=== PATIENT | female | born 1980 | race African-American/Black ===

== ENCOUNTER 2017-04-08 10:51 | Observation (INO) | payer OTHER ==
--- NOTE | 2017-04-08 11:29 | PDOC ---
History of Present Illness - General Chief Complaint: Blood Sugar Problem Stated Complaint: BLOOD SUGAR PROBLEM Time Seen by Provider: 04/08/17 11:22 History Source: Patient - History of Present Illness Initial Comments: 04/08/17 14:18 Patient is a 36 y.o. female with a PMH of recently (03/2017) diagnosed AI Hepatitis who presents to our ED after outpatient BS reading of > 600. Of note patient is currently on a Predisone taper (40 mg) for her hepatitis. Patient endorses abdominal pain and visual changes on ROS however notes that these symptoms have been present prior to her hepatitis diagnosis. Patient was evaluated by her PCP yesterday at which time an HbA1c was 8.9. Patient was supposed to start Januvia today, however this morning her doctor called and stated she should come to the ED for her hyperglycemia. NKDA Surgical: Liver biopsy PMD: Dr. Linda Saab Past History - Past Medical History Allergies/Adverse Reactions: Allergies Allergy/AdvReac Type Severity Reaction Status Date / Time No Known Allergies Allergy Verified 04/08/17 11:13 Home Medications: Ambulatory Orders Omeprazole 20 mg PO DAILY 04/08/17 Prednisone [Deltasone -] 40 mg PO DAILY 04/08/17 Asthma: Yes COPD: No DVT: No Liver Disease: Yes (AUTOIMMUNE HEPATITITS) - Immunization History Immunization Up to Date: Yes - Suicide/Smoking/Psychosocial Hx Smoking History: Current some day smoker Number of Cigarettes Smoked Daily: 1 Information on smoking cessation initiated: No Hx Alcohol Use: No Drug/Substance Use Hx: No Substance Use Type: None Review of Systems - Review of Systems Constitutional: No: Chills, Fever HEENTM: Yes: Recent change in vision Respiratory: No: Shortness of Breath Cardiac (ROS): No: Chest Pain ABD/GI: Yes: Abdominal cramping. No: Abd. Pain w/ defecation, Constipated, Diarrhea, Vomiting : No: Burning, Dysuria *Physical Exam - Vital Signs Last Vital Signs Temp Pulse Resp BP Pulse Ox 98.1 F 81 16 148/86 100 04/08/17 11:01 04/08/17 11:01 04/08/17 11:01 04/08/17 11:01 04/08/17 11:01 - Physical Exam General Appearance: Yes: Nourished, Appropriately Dressed HEENT: positive: EOMI, HANNAH. negative: Scleral Icterus (R), Scleral Icterus (L) , TM Bulging, TM Dull, TM Erythema Neck: positive: Trachea midline, Supple Respiratory/Chest: positive: Lungs Clear Cardiovascular: positive: S1, S2 Gastrointestinal/Abdominal: positive: Normal Bowel Sounds, Soft Extremity: positive: Normal Capillary Refill, Normal Inspection Integumentary: positive: Normal Color, Dry, Warm Neurologic: positive: Fully Oriented, Alert ED Treatment Course - LABORATORY CBC & Chemistry Diagram: 04/09/17 06:30 04/09/17 06:30 Medical Decision Making - Medical Decision Making 04/08/17 14:02 Patient is a 36 y.o. female who presents with hyperglycemia - likely 2/2 to recent steroid use. BS 600's, K+ 4.6 --> 10 units insulin + 2 L IV NS. CMP significant for ALT 261 (as per EMR 712 @ time of hepatitis diagnosis --> 296 yesterday) and AST 71 (144 --> 86). Case d/w patient PCP Dr. Linda Saab ( office: [phone]; cell: [phone]) agrees w/ admission with plan to see PCP and [employer] on Wednesday. 04/08/17 14:48 Patient admitted to Observation medicine service. 04/08/17 16:39 Repeat BS 600's --> 10 units insulin. Patient signed out to Dr. Caba (Resident ) and Dr. Marte (Attending). Will continue to monitor BS w/sliding scale insulin. *DC/Admit/Observation/Transfer Diagnosis at time of Disposition: Blood glucose abnormal - Discharge Dispostion Admit: Yes - Referrals - Patient Instructions - Post Discharge Activity
[2017-04-08] MEDS ORDERED: SODIUM CHLORIDE 0.9% 1000 ML INFUS.BAG IV ONE (11:30)
--- NOTE | 2017-04-08 12:19 | PDOC ---
Attending Attestation - HPI HPI: 04/08/17 12:23 The patient is a 36 year old female with a significant PMH of asthma, tobacco use, steroid-induced diabetes, autoimmune hepatitis currently on 40mg of prednisone daily who presents to the emergency department for evaluation of hyperglycemia. The patient states she had blood work on Wednesday and received a phone call yesterday saying her hemoglobin A1C was approximately 8.9 and blood glucose of 600+. The patient notes her PCP called her this morning to come into the ER for further evaluation. The patient states she was prescribed Januvia but has not taken it yet. The patient reports subjective fevers at night and intermittent abdominal cramping but has no other complaints. The patient denies chest pain, shortness of breath, headache and dizziness. Denies chills, nausea, vomit, diarrhea and constipation. Denies dysuria, frequency, urgency and hematuria. Allergies: NKA Past surgical history: None reported Social history: No reported alcohol or drug use. - Physicial Exam PE: 04/08/17 12:28 GENERAL: Awake, alert, and fully oriented, in no acute distress HEAD: No signs of trauma EYES: PERRLA, EOMI, sclera anicteric, conjunctiva clear ENT: Auricles normal inspection, hearing grossly normal, nares patent, oropharynx clear without exudates. Moist mucosa NECK: Normal ROM, supple, no lymphadenopathy, JVD, or masses LUNGS: Breath sounds equal, clear to auscultation bilaterally. No wheezes, and no crackles HEART: Regular rate and rhythm, normal S1 and S2, no murmurs, rubs or gallops ABDOMEN: Soft, nontender, normoactive bowel sounds. No guarding, no rebound. No masses EXTREMITIES: Normal range of motion, no edema. No clubbing or cyanosis. No cords, erythema, or tenderness NEUROLOGICAL: Cranial nerves II through XII grossly intact. Normal speech, normal gait SKIN: Warm, Dry, normal turgor, no rashes or lesions noted. <Enedina Starks - Last Filed: 04/08/17 12:25> - Resident Resident Name: Brie Blakely - ED Attending Attestation I have performed the following: I have examined & evaluated the patient, The case was reviewed & discussed with the resident, I agree w/resident's findings & plan, Exceptions are as noted - Medical Decision Making 04/08/17 12:17 A portion of this note was written by my scribe, under my supervision. Vital Signs Temp Pulse Resp BP Pulse Ox 98.1 F 81 16 148/86 100 04/08/17 11:01 04/08/17 11:01 04/08/17 11:01 04/08/17 11:01 04/08/17 11:01 36-year-old female with past medical history of steroid-induced diabetes, autoimmune hepatitis, currently on 40 mg of prednisone daily, presents with hyperglycemia. The patient has recently been known to be hyperglycemic and has been managed as an outpatient by her doctor. She has had blood tests performed which demonstrated an elevated hemoglobin A1c of approximately 8. Had a random glucose check which demonstrated sugars can 600. Patient reports occasional abdominal cramping but denies any other symptoms. Her doctor advised the patient to go to the ER. The patient overall is nontoxic appearing. However, we'll rule out diabetic ketoacidosis. We'll attempt to control the sugars and touch base with the patient's doctor. If workup is negative and the patient is feeling better and the glucose is improved, we can discharge patient with outpatient management follow-up with return precautions. 04/08/17 15:44 CBC, BMP 04/08/17 11:50 04/08/17 12:20 CMP Sodium 128 mmol/L (136-145) L 04/08/17 12:20 Potassium 4.6 mmol/L (3.5-5.1) 04/08/17 12:20 Chloride 93 mmol/L (98-107) L 04/08/17 12:20 Carbon Dioxide 27 mmol/L (21-32) 04/08/17 12:20 Anion Gap 8 (8-16) 04/08/17 12:20 BUN 18 mg/dL (7-18) 04/08/17 12:20 Creatinine 1.0 mg/dL (0.55-1.02) 04/08/17 12:20 Creat Clearance w eGFR > 60 (>60) 04/08/17 12:20 Random Glucose 587 mg/dL (74-106) H* 04/08/17 12:20 Calcium 8.2 mg/dL (8.5-10.1) L 04/08/17 12:20 Total Bilirubin 2.2 mg/dL (0.2-1.0) H 04/08/17 12:20 AST 71 U/L (15-37) H 04/08/17 12:20 ALT 262 U/L (12-78) H 04/08/17 12:20 Alkaline Phosphatase 131 U/L (45-117) H 04/08/17 12:20 Creatine Kinase 150 IU/L (26-192) 04/08/17 12:30 Creatine Kinase Index 1.7 % (0.0-5.0) 04/08/17 12:30 CK-MB (CK-2) 2.689 ng/mL (0.5-3.6) 04/08/17 12:30 Total Protein 6.5 g/dl (6.4-8.2) 04/08/17 12:20 Albumin 3.2 g/dl (3.4-5.0) L 04/08/17 12:20 Serum , Qual Negative 04/08/17 11:50 AG 8. No DKA. Dr. Blakely had spoken with patient's PMD, agrees the plan to admit. (Elevated LFTs appear 2/2 autoimmune hepatitis). Will admit. <Anuj Jarvis - Last Filed: 04/08/17 15:45>
[2017-04-08 12:27] LABS: VENOUS PC02 49.3 mmHg (38-52); VENOUS PH 7.36 (7.32-7.42); VENOUS PO2 26.7 mmHg (28-48)
[2017-04-08 12:27] LABS: BASO % 0.8 % (0-2.0); EOS % 0.7 % (0-4.5); HEMATOCRIT 37.2 % (32.4-45.2); HEMOGLOBIN 12.3 GM/dL (10.7-15.3); LYMPH % 26.2 % (8-40); MCH 31.3 pg (25.7-33.7); MEAN CELL VOLUME 94.9 fl (80-96); MEAN PLT VOLUME 11.5 fl (7.5-11.1); MONO % 6.7 % (3.8-10.2); NEUT % 65.6 % (42.8-82.8); PLATELET COUNT 152 K/MM3 (134-434); RBC 3.92 M/mm3 (3.60-5.2); RDW 16.3 % (11.6-15.6); WHITE BLOOD COUNT 10.6 K/mm3 (4.0-10.0)
[2017-04-08 12:32] LABS: URINE APPEARANCE CLEAR; URINE BILIRUBIN NEGATIVE (NEGATIVE); URINE BLOOD NEGATIVE (NEGATIVE); URINE COLOR LTYELLOW; URINE GLUCOSE (UA) 3+ (NEGATIVE); URINE KETONE TRACE (NEGATIVE); URINE LEUK ESTERASE NEGATIVE (NEGATIVE); URINE NITRITE NEGATIVE (NEGATIVE); URINE PROTEIN NEGATIVE (NEGATIVE)
[2017-04-08 12:57] LABS: ALBUMIN 3.2 g/dl (3.4-5.0); ALK PHOS 131 U/L (45-117); ANION GAP 8 (8-16); BILIRUBIN,TOTAL 2.2 mg/dL (0.2-1.0); BLOOD UREA NITROGEN 18 mg/dL (7-18); CALCIUM 8.2 mg/dL (8.5-10.1); CHLORIDE 93 mmol/L (98-107); CO2 27 mmol/L (21-32); SGPT/ALT 262 U/L (12-78); SODIUM 128 mmol/L (136-145); TOT PROT 6.5 g/dl (6.4-8.2)
[2017-04-08 13:01] LABS: POTASSIUM 4.6 mmol/L (3.5-5.1); SGOT/AST 71 U/L (15-37)
[2017-04-08 13:11] LABS: GLUCOSE,RANDOM 587 mg/dL (74-106)
[2017-04-08] MEDS ORDERED: INSULIN REGULAR HUMAN 100 UNITS/ML *VIAL IVPUSH ONE ×3 (13:22→16:54)
[2017-04-08] MEDS ORDERED: SODIUM CHLORIDE 0.9% 500 ML INFUS.BAG IV ONE (13:23)
[2017-04-08] MEDS ORDERED: INSULIN (NOVOLOG) ASPART 100 UNITS/ML 10ML VIAL ONE ×2 (13:40→16:49)
--- NOTE | 2017-04-08 16:23 | HP ---
CHIEF COMPLAINT: Thirst, frequency, blurry vision PCP: Dr. Linda Saab HISTORY OF PRESENT ILLNESS: 36 year-old female with a PMH significant for asthma, PCOS, and recently diagnosed autoimmunie hepatitis on steroid taper. Referred to the ED by PCP on finding patient's glucose level >600 during office visit earlier today. Patient states she was hospitalized at [facility] from 03/12/17--03/19/17 and was diagnosed with autoimmune hepatitis. She was started on prednsione which has been titrated down since discharge. She is presently on 40mg daily. Since starting the steroids, patient has been experiencing increased thirst and urination, and blurred vision. Patient states in 2014 she was diagnosed with pre -diabetes with a HgbA1C of 5.7. She was treated with Invokana for a brief period. Patient denies chest pain, shortness of breath, headache and dizziness. Denies chills, nausea, vomit, diarrhea and constipation. Denies dysuria, frequency, urgency and hematuria. 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 [place] Smoking: current every day smoker Alcohol: no Drugs: +marijuana Family History: Mother alive with NIDDM, extended materal family relatives with NIDDM; father 60 lung cancer; 5 brothers and 1 sister a&w; has no children Allergies No Known Allergies Allergy (Verified 04/08/17 11:13) HOME MEDICATIONS: Home Medications Medication Instructions Recorded Omeprazole 20 mg PO DAILY 04/08/17 Prednisone [Deltasone -] 40 mg PO DAILY 04/08/17 REVIEW OF SYSTEMS CONSTITUTIONAL: Absent: fever, chills, diaphoresis, generalized weakness, malaise, loss of appetite, weight change HEENT: Absent: rhinorrhea, nasal congestion, throat pain, throat swelling, difficulty swallowing, mouth swelling, ear pain, eye pain, visual changes CARDIOVASCULAR: Absent: chest pain, syncope, palpitations, irregular heart rate, lightheadedness , peripheral edema RESPIRATORY: Absent: cough, shortness of breath, dyspnea with exertion, orthopnea, wheezing, stridor, hemoptysis GASTROINTESTINAL: Absent: abdominal pain, abdominal distension, nausea, vomiting, diarrhea, constipation, melena, hematochezia GENITOURINARY: +frequency Absent: dysuria, urgency, hesitancy, hematuria, flank pain, genital pain MUSCULOSKELETAL: Absent: myalgia, arthralgia, joint swelling, back pain, neck pain SKIN: Absent: rash, itching, pallor HEMATOLOGIC/IMMUNOLOGIC: Absent: easy bleeding, easy bruising, lymphadenopathy, frequent infections ENDOCRINE: Absent: unexplained weight gain, unexplained weight loss, heat intolerance, cold intolerance NEUROLOGIC: Absent: headache, focal weakness or paresthesias, dizziness, unsteady gait, seizure, mental status changes, bladder or bowel incontinence PSYCHIATRIC: Absent: anxiety, depression, suicidal or homicidal ideation, hallucinations. PHYSICAL EXAMINATION Vital Signs - 24 hr 04/08/17 11:01 Temperature 98.1 F Pulse Rate 81 Respiratory 16 Rate Blood Pressure 148/86 O2 Sat by Pulse 100 Oximetry (%) GENERAL: Awake, alert, and fully oriented, in no acute distress. HEAD: Normal with no signs of trauma. EYES: Pupils equal, round and reactive to light, extraocular movements intact, sclera anicteric, conjunctiva clear. No lid lag. EARS, NOSE, THROAT: Ears normal, nares patent, oropharynx clear without exudates. Moist mucous membranes. NECK: Normal range of motion, supple without lymphadenopathy, JVD, or masses. LUNGS: Breath sounds equal, clear to auscultation bilaterally. No wheezes, and no crackles. No accessory muscle use. HEART: Regular rate and rhythm, normal S1 and S2 without murmur, rub or gallop. ABDOMEN: Soft, nontender, not distended, normoactive bowel sounds, no guarding, no rebound, no masses. No hepatomegaly or splenomegaly. MUSCULOSKELETAL: Normal range of motion at all joints. No bony deformities or tenderness. No CVA tenderness. UPPER EXTREMITIES: 2+ pulses, warm, well-perfused. No cyanosis. No clubbing. No peripheral edema. LOWER EXTREMITIES: 2+ pulses, warm, well-perfused. No calf tenderness. No peripheral edema. NEUROLOGICAL: Cranial nerves II-XII intact. Normal speech. Normal gait. PSYCHIATRIC: Cooperative. Good eye contact. Appropriate mood and affect. SKIN: Warm, dry, normal turgor, no rashes or lesions noted, normal capillary refill. Laboratory Results - last 24 hr 04/08/17 04/08/17 04/08/17 11:47 11:50 11:50 WBC 10.6 H RBC 3.92 Hgb 12.3 Hct 37.2 MCV 94.9 MCH 31.3 MCHC 33.0 RDW 16.3 H Plt Count 152 MPV 11.5 H Neutrophils % 65.6 Lymphocytes % 26.2 Monocytes % 6.7 Eosinophils % 0.7 Basophils % 0.8 VBG pH POC VBG pCO2 POC VBG pO2 Mixed VBG HCO3 Sodium Potassium Chloride Carbon Dioxide Anion Gap BUN Creatinine Creat Clearance w eGFR POC Glucometer > 400 Random Glucose Calcium Total Bilirubin AST ALT Alkaline Phosphatase Creatine Kinase Creatine Kinase Index CK-MB (CK-2) Total Protein Albumin Serum , Qual Negative Urine Color Urine Appearance Urine pH Ur Specific [place] Urine Protein Urine Glucose (UA) Urine Ketones Urine Blood Urine Nitrite Urine Bilirubin Urine Urobilinogen Ur Leukocyte Esterase Acetone, Qual 04/08/17 04/08/17 04/08/17 11:50 12:06 12:15 WBC RBC Hgb Hct MCV MCH MCHC RDW Plt Count MPV Neutrophils % Lymphocytes % Monocytes % Eosinophils % Basophils % VBG pH 7.36 POC VBG pCO2 49.3 POC VBG pO2 26.7 L Mixed VBG HCO3 27.0 H Sodium Potassium Chloride Carbon Dioxide Anion Gap BUN Creatinine Creat Clearance w eGFR POC Glucometer Random Glucose Calcium Total Bilirubin AST ALT Alkaline Phosphatase Creatine Kinase Creatine Kinase Index CK-MB (CK-2) Total Protein Albumin Serum , Qual Urine Color Ltyellow Urine Appearance Clear Urine pH 6.0 Ur Specific [place] 1.033 Urine Protein Negative Urine Glucose (UA) 3+ H Urine Ketones Trace H Urine Blood Negative Urine Nitrite Negative Urine Bilirubin Negative Urine Urobilinogen 2.0 H Ur Leukocyte Esterase Negative Acetone, Qual Negative L 04/08/17 04/08/17 12:20 12:30 WBC RBC Hgb Hct MCV MCH MCHC RDW Plt Count MPV Neutrophils % Lymphocytes % Monocytes % Eosinophils % Basophils % VBG pH POC VBG pCO2 POC VBG pO2 Mixed VBG HCO3 Sodium 128 L Potassium 4.6 Chloride 93 L Carbon Dioxide 27 Anion Gap 8 BUN 18 Creatinine 1.0 Creat Clearance w eGFR > 60 POC Glucometer Random Glucose 587 H* Calcium 8.2 L Total Bilirubin 2.2 H AST 71 H ALT 262 H Alkaline Phosphatase 131 H Creatine Kinase 150 Creatine Kinase Index 1.7 CK-MB (CK-2) 2.689 Total Protein 6.5 Albumin 3.2 L Serum , Qual Urine Color Urine Appearance Urine pH Ur Specific [place] Urine Protein Urine Glucose (UA) Urine Ketones Urine Blood Urine Nitrite Urine Bilirubin Urine Urobilinogen Ur Leukocyte Esterase Acetone, Qual ASSESSMENT/PLAN: 36 year-old female with a PMH significant for asthma, PCOS, and recently diagnosed autoimmunie hepatitis on steroid taper. Glucose level >600 during office visit earlier today. Hyperglycemia Diabetes --was briefly on Invokana in 2014 for concern for diabetes, but taken off after three months; no other previous diagnosis of diabetes --following commencement of steroids, symptoms of polyuria, polydipsia developed; recent A1C by PCP >8 --gluocse 587 on admission --Novolog sliding scale coverage --IV fluids --monitor electrolytes closely; corrected Na 136 PCOS --not on medication Asthma --stable DVT prophylaxis: oob, ambulation Visit type - Emergency Visit Emergency Visit: Yes ED Registration Date: 04/08/17 Care time: The patient presented to the Emergency Department on the above date and was hospitalized for further evaluation of their emergent condition. - New Patient This patient is new to me today: Yes Date on this admission: 04/09/17 - Critical Care Critical Care patient: No
[2017-04-08] MEDS: SODIUM CHLORIDE 1,000 ML IV SCH ×2 (16:25→22:38)
[2017-04-08] MEDS ORDERED: predniSONE 20 MG TABLET (UD) ONE (16:48)
[2017-04-08] MEDS ORDERED: PANTOPRAZOLE 40 MG TABLET (FP) ONE (16:49)
[2017-04-08] MEDS: predniSONE 20 MG TABLET (UD) PO SCH (16:54)
[2017-04-08] MEDS: PANTOPRAZOLE 20 MG TABLET (FP) PO SCH (16:54)
[2017-04-08] MEDS: INSULIN SLIDING SCALE (NOVOLOG) 1 VIAL SQ SCH ×2 (16:54→23:24)
[2017-04-08 22:35] VITALS: BMI 33.1
[2017-04-08 23:31] LABS: ANION GAP 9 (8-16); BLOOD UREA NITROGEN 18 mg/dL (7-18); CALCIUM 8.1 mg/dL (8.5-10.1); CHLORIDE 100 mmol/L (98-107); CO2 25 mmol/L (21-32); CREATININE 0.9 mg/dL (0.55-1.02); MAGNESIUM 1.9 mg/dL (1.8-2.4); SODIUM 134 mmol/L (136-145)
[2017-04-08 23:34] LABS: GLUCOSE,RANDOM 437 mg/dL (74-106)
[2017-04-09] MEDS: SODIUM CHLORIDE 1,000 ML IV SCH (06:17)
[2017-04-09] MEDS: INSULIN SLIDING SCALE (NOVOLOG) 1 VIAL SQ SCH ×3 (06:19→17:43)
[2017-04-09 08:14] LABS: ALBUMIN 2.6 g/dl (3.4-5.0); ANION GAP 9 (8-16); BLOOD UREA NITROGEN 15 mg/dL (7-18); CALCIUM 7.8 mg/dL (8.5-10.1); CHLORIDE 104 mmol/L (98-107); CO2 24 mmol/L (21-32); CREATININE 0.6 mg/dL (0.55-1.02); GLUCOSE,RANDOM 240 mg/dL (74-106); POTASSIUM 3.9 mmol/L (3.5-5.1); SGOT/AST 53 U/L (15-37); SGPT/ALT 214 U/L (12-78); SODIUM 137 mmol/L (136-145)
[2017-04-09 08:15] LABS: ALK PHOS 101 U/L (45-117); BILIRUBIN,TOTAL 1.4 mg/dL (0.2-1.0); TOT PROT 5.4 g/dl (6.4-8.2)
[2017-04-09 08:19] LABS: BASO % 0.4 % (0-2.0); EOS % 1.1 % (0-4.5); HEMATOCRIT 33.4 % (32.4-45.2); HEMOGLOBIN 11.1 GM/dL (10.7-15.3); LYMPH % 41.6 % (8-40); MCH 31.2 pg (25.7-33.7); MCHC 33.2 g/dl (32.0-36.0); MEAN CELL VOLUME 94.2 fl (80-96); MEAN PLT VOLUME 11.4 fl (7.5-11.1); MONO % 7.2 % (3.8-10.2); NEUT % 49.7 % (42.8-82.8); PLATELET COUNT 138 K/MM3 (134-434); RBC 3.55 M/mm3 (3.60-5.2); RDW 17.3 % (11.6-15.6); WHITE BLOOD COUNT 11.1 K/mm3 (4.0-10.0)
[2017-04-09] MEDS ORDERED: FLU VACCINE QUAD 60 MCG/0.5 ML (MDV 17-18) IM ONE (09:00)
[2017-04-09] MEDS: predniSONE 20 MG TABLET (UD) PO SCH (10:42)
[2017-04-09] MEDS: PANTOPRAZOLE 20 MG TABLET (FP) PO SCH (10:42)
--- NOTE | 2017-04-09 11:33 | PN ---
Physical Exam: SUBJECTIVE: Patient seen and examined. Continues to experience polydipsia, improving. No longer having polyuria. OBJECTIVE: Vital Signs Period Temp Pulse Resp BP Sys/Perez Pulse Ox Last 24 Hr 97.5 F-98.2 F 63-78 18-20 120-135/59-80 97-99 GENERAL: The patient is awake, alert, and fully oriented, in no acute distress. HEAD: Normal with no signs of trauma. EYES: PERRL, extraocular movements intact, sclera anicteric, conjunctiva clear. No ptosis. ENT: Ears normal, nares patent, oropharynx clear without exudates, moist mucous membranes. NECK: Trachea midline, full range of motion, supple. LUNGS: Breath sounds equal, clear to auscultation bilaterally, no wheezes, no crackles, no accessory muscle use. HEART: Regular rate and rhythm, S1, S2 without murmur, rub or gallop. ABDOMEN: Soft, nontender, nondistended, normoactive bowel sounds, no guarding, no rebound, no hepatosplenomegaly, no masses. EXTREMITIES: 2+ pulses, warm, well-perfused, no edema. NEUROLOGICAL: Cranial nerves II through XII grossly intact. Normal speech, gait not observed. PSYCH: Normal mood, normal affect. SKIN: Warm, dry, normal turgor, no rashes or lesions noted Laboratory Results - last 24 hr 04/08/17 04/08/17 04/08/17 11:47 11:50 11:50 WBC 10.6 H RBC 3.92 Hgb 12.3 Hct 37.2 MCV 94.9 MCH 31.3 MCHC 33.0 RDW 16.3 H Plt Count 152 MPV 11.5 H Neutrophils % 65.6 Lymphocytes % 26.2 Monocytes % 6.7 Eosinophils % 0.7 Basophils % 0.8 VBG pH POC VBG pCO2 POC VBG pO2 Mixed VBG HCO3 Sodium Potassium Chloride Carbon Dioxide Anion Gap BUN Creatinine Creat Clearance w eGFR POC Glucometer > 400 Random Glucose Hemoglobin A1c % Calcium Phosphorus Magnesium Total Bilirubin AST ALT Alkaline Phosphatase Creatine Kinase Creatine Kinase Index CK-MB (CK-2) Total Protein Albumin Serum , Qual Negative Urine Color Urine Appearance Urine pH Ur Specific [place] Urine Protein Urine Glucose (UA) Urine Ketones Urine Blood Urine Nitrite Urine Bilirubin Urine Urobilinogen Ur Leukocyte Esterase Acetone, Qual 01/04/08/17 04/08/17 11:50 12:06 12:15 WBC RBC Hgb Hct MCV MCH MCHC RDW Plt Count MPV Neutrophils % Lymphocytes % Monocytes % Eosinophils % Basophils % VBG pH 7.36 POC VBG pCO2 49.3 POC VBG pO2 26.7 L Mixed VBG HCO3 27.0 H Sodium Potassium Chloride Carbon Dioxide Anion Gap BUN Creatinine Creat Clearance w eGFR POC Glucometer Random Glucose Hemoglobin A1c % Calcium Phosphorus Magnesium Total Bilirubin AST ALT Alkaline Phosphatase Creatine Kinase Creatine Kinase Index CK-MB (CK-2) Total Protein Albumin Serum , Qual Urine Color Ltyellow Urine Appearance Clear Urine pH 6.0 Ur Specific [place] 1.033 Urine Protein Negative Urine Glucose (UA) 3+ H Urine Ketones Trace H Urine Blood Negative Urine Nitrite Negative Urine Bilirubin Negative Urine Urobilinogen 2.0 H Ur Leukocyte Esterase Negative Acetone, Qual Negative L 04/08/17 04/08/17 04/08/17 12:20 12:30 16:48 WBC RBC Hgb Hct MCV MCH MCHC RDW Plt Count MPV Neutrophils % Lymphocytes % Monocytes % Eosinophils % Basophils % VBG pH POC VBG pCO2 POC VBG pO2 Mixed VBG HCO3 Sodium 128 L Potassium 4.6 Chloride 93 L Carbon Dioxide 27 Anion Gap 8 BUN 18 Creatinine 1.0 Creat Clearance w eGFR > 60 POC Glucometer > 400 Random Glucose 587 H* Hemoglobin A1c % Calcium 8.2 L Phosphorus Magnesium Total Bilirubin 2.2 H AST 71 H ALT 262 H Alkaline Phosphatase 131 H Creatine Kinase 150 Creatine Kinase Index 1.7 CK-MB (CK-2) 2.689 Total Protein 6.5 Albumin 3.2 L Serum , Qual Urine Color Urine Appearance Urine pH Ur Specific [place] Urine Protein Urine Glucose (UA) Urine Ketones Urine Blood Urine Nitrite Urine Bilirubin Urine Urobilinogen Ur Leukocyte Esterase Acetone, Qual 04/08/17 04/08/17 04/09/17 21:55 22:36 06:18 WBC RBC Hgb Hct MCV MCH MCHC RDW Plt Count MPV Neutrophils % Lymphocytes % Monocytes % Eosinophils % Basophils % VBG pH POC VBG pCO2 POC VBG pO2 Mixed VBG HCO3 Sodium 134 L Potassium 5.0 Chloride 100 Carbon Dioxide 25 Anion Gap 9 BUN 18 Creatinine 0.9 Creat Clearance w eGFR POC Glucometer 438 254 Random Glucose 437 H* Hemoglobin A1c % Calcium 8.1 L Phosphorus 3.0 Magnesium 1.9 Total Bilirubin AST ALT Alkaline Phosphatase Creatine Kinase Creatine Kinase Index CK-MB (CK-2) Total Protein Albumin Serum , Qual Urine Color Urine Appearance Urine pH Ur Specific [place] Urine Protein Urine Glucose (UA) Urine Ketones Urine Blood Urine Nitrite Urine Bilirubin Urine Urobilinogen Ur Leukocyte Esterase Acetone, Qual 04/09/17 04/09/17 04/09/17 06:30 06:30 06:30 WBC 11.1 H RBC 3.55 L Hgb 11.1 Hct 33.4 MCV 94.2 MCH 31.2 MCHC 33.2 RDW 17.3 H Plt Count 138 MPV 11.4 H Neutrophils % 49.7 D Lymphocytes % 41.6 H D Monocytes % 7.2 Eosinophils % 1.1 Basophils % 0.4 VBG pH POC VBG pCO2 POC VBG pO2 Mixed VBG HCO3 Sodium 137 Potassium 3.9 Chloride 104 Carbon Dioxide 24 Anion Gap 9 BUN 15 Creatinine 0.6 Creat Clearance w eGFR > 60 POC Glucometer Random Glucose 240 H Hemoglobin A1c % 10.5 H Calcium 7.8 L Phosphorus Magnesium 2.0 Total Bilirubin 1.4 H D AST 53 H ALT 214 H Alkaline Phosphatase 101 Creatine Kinase Creatine Kinase Index CK-MB (CK-2) Total Protein 5.4 L Albumin 2.6 L Serum , Qual Urine Color Urine Appearance Urine pH Ur Specific [place] Urine Protein Urine Glucose (UA) Urine Ketones Urine Blood Urine Nitrite Urine Bilirubin Urine Urobilinogen Ur Leukocyte Esterase Acetone, Qual Active Medications Generic Name Dose Route Start Last Admin Trade Name Freq PRN Reason Stop Dose Admin Sodium Chloride 1,000 mls @ 125 mls/hr 04/08/17 16:15 04/09/17 06:17 Normal Saline - IV 125 mls/hr ASDIR JANET Administration Insulin Aspart 1 vial 04/08/17 16:30 04/09/17 06:19 Novolog Vial Sliding Scale - SQ 6 units ACHS JANET Administration Protocol Pantoprazole Sodium 20 mg 04/08/17 16:30 04/09/17 10:42 Protonix - PO 20 mg DAILY JANET Administration Prednisone 40 mg 04/08/17 16:30 04/09/17 10:42 Deltasone - PO 40 mg DAILY JANET Administration ASSESSMENT/PLAN: A: 36 year-old female with a PMH significant for asthma, PCOS, and recently diagnosed autoimmunie hepatitis on steroid taper. Glucose level >600 during office visit 04/08. P: Hyperglycemia Diabetes - symptoms of polyuria, polydipsia developed after steroid initiation - gluocose 200's overnight - A1c- 10.5 - Novolog SS - Endocrine consult pending - Dietary consult PCOS - not on medication Asthma - stable Autoimmune hepatitis - prednisone F/E/N - diabetic diet - trend lytes PPX - OOB - PT Visit type - Emergency Visit Emergency Visit: Yes ED Registration Date: 04/08/17 Care time: The patient presented to the Emergency Department on the above date and was hospitalized for further evaluation of their emergent condition. - New Patient This patient is new to me today: Yes Date on this admission: 04/09/17 - Critical Care Critical Care patient: No
--- NOTE | 2017-04-09 14:46 | CONSULT ---
Consult Consult Specialty:: Endocrinology Referred by:: Naheed Snyder Reason for Consultation:: New Onset DM - History of Present Illness Chief Complaint: Polyuria, polydipsia History of Present Illness: This is a 36 year-old female with h/o ?asthma, PCOS, IGT and recently diagnosed autoimmunie hepatitis on steroid taper who wasr eferred to the ED by PCP b/o glucose level >600 during office visit yesterday. Patient states she was hospitalized at [facility] from 03/12/17--03/19/17 and was diagnosed with autoimmune hepatitis. She was started on prednsione which has been titrated down since discharge. She is presently on 40mg daily which is being tapered to 30mg daily starting tomorrow and to 20mg daily starting next Wednesday. Pt to be on 20mg daily for about 2 years as per pt. Since starting the steroids, patient has been experiencing increased thirst and urination, and blurred vision. She has lost around 20 lbs in the last few weeks. Patient states in 2014 she was diagnosed with pre-diabetes with a HgbA1C of 5.7. She was treated with Invokana for a brief period. Patient denies chest pain, shortness of breath, headache and dizziness. Denies chills, nausea, vomit, diarrhea and constipation. Denies dysuria, frequency, urgency and hematuria. Blood sugar in ED was 587. Pt was treated with Insulin with improvement in blood sugar - History Source History Provided By: Patient, Medical Record - Past Medical History Hepatobiliary: Yes: Other (Autoimmune hepatitis) ...: No Endocrine: Yes: Other (Impaired glucose tolerance) - Alcohol/Substance Use Hx Alcohol Use: No - Smoking History Smoking history: Current some day smoker Have you smoked in the past 12 months: Yes Aproximately how many cigarettes per day: 1 Home Medications - Allergies Allergies/Adverse Reactions: Allergies Allergy/AdvReac Type Severity Reaction Status Date / Time No Known Allergies Allergy Verified 04/08/17 11:13 - Home Medications Home Medications: Ambulatory Orders Omeprazole 20 mg PO DAILY 04/08/17 Prednisone [Deltasone -] 40 mg PO DAILY 04/08/17 Family Disease History - Family Disease History Family Disease History: Diabetes: Grandparent, Mother Review of Systems - Review of Systems Constitutional: reports: Malaise Eyes: reports: Blurred Vision HENT: reports: No Symptoms Neck: reports: No Symptoms Cardiovascular: reports: No Symptoms Respiratory: reports: No Symptoms Gastrointestinal: reports: No Symptoms Genitourinary: reports: Frequency (Polyuria, polydipsis), Urgency, Other Breasts: reports: No Symptoms Reported Musculoskeletal: reports: No Symptoms Integumentary: reports: No Symptoms Neurological: reports: No Symptoms Endocrine: reports: No Symptoms Hematology/Lymphatic: reports: No Symptoms Psychiatric: reports: No Symptoms Physical Exam Vital Signs: Vital Signs Temperature 98.2 F 04/09/17 09:00 Pulse Rate 78 04/09/17 09:00 Respiratory Rate 18 04/09/17 09:00 Blood Pressure 129/78 04/09/17 09:00 O2 Sat by Pulse Oximetry (%) 97 04/09/17 00:14 Constitutional: Yes: No Distress, Calm Eyes: Yes: Conjunctiva Clear, EOM Intact HENT: Yes: Atraumatic, Normocephalic Neck: Yes: Supple, Trachea Midline Cardiovascular: Yes: Regular Rate and Rhythm Respiratory: Yes: Regular, CTA Bilaterally Gastrointestinal: Yes: Normal Bowel Sounds, Soft Renal/: Yes: WNL Musculoskeletal: Yes: WNL Extremities: Yes: WNL Edema: No Neurological: Yes: Alert, Oriented Labs: CBC, BMP 04/09/17 06:30 04/09/17 06:30 Assessment/Plan AP: DM probably precipitated by steroids Autoimmune Hepatitis PCOS Diet exercise discussed Diabetes education done. BGM QACHS Nutrition consult Glipizide 2.5mg BID premeals No Metformin as she was not able to tolerate it in the past Novolog SS coverage Teach pt to self monitor blood sugar, and self inject insulin
[2017-04-09] MEDS: glipiZIDE 5 MG TABLET (FP) PO SCH (17:43)
[2017-04-09] MEDS ORDERED: INSULIN SLIDING SCALE (NOVOLOG) 1 VIAL SQ SCH (22:00)
[2017-04-10] MEDS: INSULIN SLIDING SCALE (NOVOLOG) 1 VIAL SQ SCH (06:00)
[2017-04-10] MEDS: glipiZIDE 5 MG TABLET (FP) PO SCH (06:00)
[2017-04-10 07:52] LABS: BASO % 0.3 % (0-2.0); EOS % 1.1 % (0-4.5); HEMATOCRIT 34.9 % (32.4-45.2); HEMOGLOBIN 11.7 GM/dL (10.7-15.3); LYMPH % 44.3 % (8-40); MCH 31.4 pg (25.7-33.7); MCHC 33.7 g/dl (32.0-36.0); MEAN CELL VOLUME 93.4 fl (80-96); MEAN PLT VOLUME 11.1 fl (7.5-11.1); MONO % 5.8 % (3.8-10.2); NEUT % 48.5 % (42.8-82.8); PLATELET COUNT 143 K/MM3 (134-434); RBC 3.74 M/mm3 (3.60-5.2); RDW 17.2 % (11.6-15.6); WHITE BLOOD COUNT 10.6 K/mm3 (4.0-10.0)
[2017-04-10 08:18] LABS: ALBUMIN 2.7 g/dl (3.4-5.0); ANION GAP 9 (8-16); BILIRUBIN,TOTAL 1.4 mg/dL (0.2-1.0); BLOOD UREA NITROGEN 13 mg/dL (7-18); CALCIUM 8.1 mg/dL (8.5-10.1); CHLORIDE 102 mmol/L (98-107); CO2 25 mmol/L (21-32); CREATININE 0.6 mg/dL (0.55-1.02); GLUCOSE,RANDOM 187 mg/dL (74-106); POTASSIUM 3.8 mmol/L (3.5-5.1); SGOT/AST 91 U/L (15-37); SGPT/ALT 262 U/L (12-78); SODIUM 136 mmol/L (136-145); TOT PROT 5.5 g/dl (6.4-8.2)
[2017-04-10 08:20] LABS: ALK PHOS 97 U/L (45-117)
[2017-04-10] MEDS: PANTOPRAZOLE 20 MG TABLET (FP) PO SCH (10:38)
[2017-04-10] MEDS: predniSONE 20 MG TABLET (UD) PO SCH (10:38)
--- NOTE | 2017-04-10 11:26 | DS ---
Physical Exam: SUBJECTIVE: Patient seen and examined at the bedside. Denies polyuria, polydipsia. Patient verbalizes understanding on how to use a glucometer, follow a sliding scale and self inject. She has been taught my nursing staff. OBJECTIVE: Vital Signs Period Temp Pulse Resp BP Sys/Perez Pulse Ox Last 24 Hr 97.9 F-98.1 F 64-70 18-18 118-130/63-79 97-98 PHYSICAL EXAM GENERAL: The patient is awake, alert, and fully oriented, in no acute distress. HEAD: Normal with no signs of trauma. EYES: PERRL, extraocular movements intact, sclera anicteric, conjunctiva clear. ENT: Ears normal, nares patent, oropharynx clear without exudates, moist mucous membranes. NECK: Trachea midline, full range of motion, supple. LUNGS: Breath sounds equal, clear to auscultation bilaterally, no wheezes, no crackles, no accessory muscle use. HEART: Regular rate and rhythm, S1, S2 without murmur, rub or gallop. ABDOMEN: Soft, nontender, nondistended, normoactive bowel sounds, no guarding, no rebound, no hepatosplenomegaly, no masses. EXTREMITIES: 2+ pulses, warm, well-perfused, no edema. NEUROLOGICAL: Cranial nerves II through XII grossly intact. Normal speech, gait not observed. PSYCH: Normal mood, normal affect. SKIN: Warm, dry, normal turgor, no rashes or lesions noted. LABS Laboratory Results - last 24 hr 04/09/17 04/09/17 04/09/17 11:36 16:41 22:19 WBC RBC Hgb Hct MCV MCH MCHC RDW Plt Count MPV Neutrophils % Lymphocytes % Monocytes % Eosinophils % Basophils % Sodium Potassium Chloride Carbon Dioxide Anion Gap BUN Creatinine Creat Clearance w eGFR POC Glucometer 336 337 282 Random Glucose Calcium Total Bilirubin AST ALT Alkaline Phosphatase Total Protein Albumin 04/10/17 04/10/17 04/10/17 05:56 06:00 06:00 WBC 10.6 H RBC 3.74 Hgb 11.7 Hct 34.9 MCV 93.4 MCH 31.4 MCHC 33.7 RDW 17.2 H Plt Count 143 MPV 11.1 Neutrophils % 48.5 Lymphocytes % 44.3 H Monocytes % 5.8 Eosinophils % 1.1 Basophils % 0.3 Sodium 136 Potassium 3.8 Chloride 102 Carbon Dioxide 25 Anion Gap 9 BUN 13 Creatinine 0.6 Creat Clearance w eGFR > 60 POC Glucometer 203 Random Glucose 187 H Calcium 8.1 L Total Bilirubin 1.4 H AST 91 H ALT 262 H Alkaline Phosphatase 97 Total Protein 5.5 L Albumin 2.7 L HOSPITAL COURSE: Date of Admission:04/08/17 Date of Discharge: 04/10/17 Patient is a 36 year old female with a significant past medical history of asthma, PCOS, and recently diagnosed autoimmunie hepatitis. She was placed on a steroid taper by her primary care physician. Patient was sent to the hospital by her PCP when her glucose level was >600 during a office visit on . Endocrine: Hyperglycemia Likely steriod induced Has family hx of diabetes mellitus also (mother) Blood sugars now better controlled, will discharged today on sliding scale with Humolog (her insurance will not approve Novolog) Glucometer, supplies and Humolog called into patient's pharmacy Patient states she feels comfortable following sliding scale, self administering insulin Patient to continue Glipizide BID Endocrinology follow up PCP follow up next week (pt has appointment) Autoimmune hepatitis, chronic On prednisone taper as per PCP Discharge today. Patient to follow up with her PCP. Endocrinology referral in discharge packet. Minutes to complete discharge: 60 Discharge Summary Reason For Visit: HYPERGLYCEMIA Current Active Problems Blood glucose abnormal (Acute) Condition: Improved - Instructions Diet, Activity, Other Instructions: Mrs Beatty: Please continue your steriod taper as prescribed by your primary care physician: You were admitted for hyperglycemia (elevated blood sugars). We will start you on insulin as well as Glipizide twice daily as discussed. Please note that you will be started on insulin with a sliding scale as follow: Novolog sliding scale before each meal: Blood sugar before meals: Give yourself this much insulin: 101-150 no insulin needed, if blood sugar is below 70, take one glucose tab and recheck 151-200 4 201-250 6 251-300 8 301-350 10 351-400 12 400 or greater, administer 14 units and repeat blood sugar, if still elevated, call your PCP or come to nearest ER. Novolog sliding scale at night before BEDTIME: Blood sugar before meals: Give yourself this much insulin: 101-150 no insulin needed, if blood sugar is below 70, take one glucose tab and recheck 151-200 no insulin needed, if blood sugar is below 70, take one glucose tab and recheck 201-250 2 251-300 4 301-350 6 351-400 8 400 or greater, administer 14 units and repeat blood sugar, if still elevated, call your PCP or come to nearest ER. I have ordered a glucometer, strips, lancets, alcohol wipes, insulin pen and glucose tablets. Please keep a log of your blood sugars and present them to your physician as he/she may need to adjust your insulin coverage. A referral to an die casting machine maintainer is in your discharge packet. Symptoms of hypoglycemia (low blood sugar) nausea, confusion, vomiting, check your blood sugar immediately I am available between the hours of 7am and 7pm if you have any questions or concerns. Roz Gong Chamberlain SENIOR DATA INTEGRATION DEVELOPER [facility] [phone] Referrals: Linda Saab MD [Primary Care Provider] - Moiz Mendiola MD [Staff Physician] - Disposition: HOME - Home Medications Comprehensive Discharge Medication List: Ambulatory Orders Omeprazole 20 mg PO DAILY 04/08/17 Prednisone [Deltasone -] 40 mg PO DAILY 04/08/17 Alcohol Antiseptic Pads [Alcohol Swabs] 1 each ACHS #1 box 04/10/17 Dextrose Tablet [Glucose Tablet -] 4 gm PO PRN #20 tab.chew 04/10/17 Glipizide [Glucotrol -] 2.5 mg PO BID@0700,1630 #60 tablet 04/10/17 Insulin Aspart [Novolog Flexpen] 2 unit SQ ACHS #1 insuln.pen 04/10/17 Lancets/Blood Glucose Strips [Fora [id number] [facility]] 1 each ACHS #1 combo..pkg 04/10/17 Miscellaneous Medical Supply [Glucometer Device] 1 each SQ ASDIR #1 kit [place], Disposable [[place]] 1 each ACHS #1 box 04/10/17 This patient is new to me today: Yes Date on this admission: 04/10/17 Emergency Visit: Yes ED Registration Date: 04/08/17 Care time: The patient presented to the Emergency Department on the above date and was hospitalized for further evaluation of their emergent condition. Critical Care patient: No - Discharge Referral Referred to [facility] Med P.C.: No
[2017-04-10 12:19] VITALS: BP 112/63; PULSE 58; TEMP 98
== END 2017-04-10 12:15 | disposition home or self-care (01) ==
LOC: JER 10:51 → JERBED 15:47 → J7W 21:26
PROVIDERS: ADMIT Internal Medicine; ATTEND Nurse Practitioner Family
PROC: 3E033VG Introduction of Insulin into Peripheral Vein, Percutaneous Approach (ICD-10-PCS; principal; 2017-04-08)
PROC: 3E013VG Introduction of Insulin into Subcutaneous Tissue, Percutaneous Approach (ICD-10-PCS; 2017-04-08)
DX: E11.65 Type 2 diabetes mellitus with hyperglycemia (principal); K75.4 Autoimmune hepatitis; E28.2 Polycystic ovarian syndrome; F17.210 Nicotine dependence, cigarettes, uncomplicated; J45.909 Unspecified asthma, uncomplicated; R94.5 Abnormal results of liver function studies; Z79.4 Long term (current) use of insulin
CPT/HCPCS: 36415; 71046-TC; 80048; 80053; 81003; 82009; 82550; 82553; 82803; 82962; 83036; 83735; 84100; 84703; 85025; 90688; 99283-25; G0378